=== PATIENT | male | born 1990 | race Caucasian/White ===

== ENCOUNTER 2019-03-09 19:42 | Emergency (ER) | payer SELFPAY ==
[2019-03-09 19:52] VITALS: BP 152/78
--- NOTE | 2019-03-09 20:43 | ER Document Report ---
ED Medical Screen (RME) - General Chief Complaint: Sore Throat Stated Complaint: DIFFICULTY BREATHING Time Seen by Provider: 03/09/19 20:36 - HPI Notes: 03/09/19 20:41 Patient is a 28-year-old male who presents complaining of possible lump to the left lower anterior neck area that he is noticed for the past couple days. He does not notice it when he swallows and does not believe it to be like a food bolus. Patient states that he does have anxiety and feeling something in that part of his neck has exacerbated this as well as panic attacks. He is also complaining of left ear pain. No fever, chest pain, shortness of breath, abdominal pain. I have treated and performed a rapid initial assessment of this patient. A comprehensive ED assessment and evaluation of the patient, analysis of test results and completion of medical decision making process will be conducted by additional ED providers. PHYSICAL EXAMINATION: GENERAL: Well-appearing, well-nourished and in no acute distress. A&Ox4. Answers questions appropriately. Left ear: Cerumen impaction noted Neck: The area of concern does not appear to be the left side of his thyroid, patient's neck is fairly large so the anatomic structures are somewhat difficult . Throat: Airway clear. - Related Data Allergies/Adverse Reactions: No Known Allergies Allergy (Unverified 03/09/19 20:33) Past Medical History - Social History Frequency of alcohol use: None Drug Abuse: None Physical Exam - Vital signs Vitals: Temp Pulse Resp BP Pulse Ox 98.6 F 78 21 H 152/78 H 100 03/09/19 19:50 03/09/19 19:50 03/09/19 19:50 03/09/19 19:50 03/09/19 19:50 Course - Vital Signs Vital signs: Temp Pulse Resp BP Pulse Ox 98.6 F 78 21 H 152/78 H 100 03/09/19 19:50 03/09/19 19:50 03/09/19 19:50 03/09/19 19:50 03/09/19 19:50
[2019-03-09 21:08] LABS: ABSOLUTE BASOPHILS # (AUTO) 0.1 10^3/uL (0.0-0.2); ABSOLUTE EOSINOPHILS # (AUTO) 0.3 10^3/uL (0.0-0.6); ABSOLUTE LYMPHOCYTES (AUTO) 2.9 10^3/uL (0.5-4.7); ABSOLUTE MONOCYTES (AUTO) 0.6 10^3/uL (0.1-1.4); ABSOLUTE NEUT (AUTO) 6.2 10^3/uL (1.7-8.2); BASOPHILS % (AUTO) 0.8 % (0-2); HEMATOCRIT 41.8 % (37.9-51.0); HEMOGLOBIN 14.2 g/dL (13.5-17.0); LYMPHOCYTES % (AUTO) 28.6 % (13-45); MEAN CORPUSCULAR HEMOGLOBIN 28.2 pg (27.0-33.4); MEAN CORPUSCULAR HGB CONC 33.9 g/dL (32.0-36.0); MEAN CORPUSCULAR VOLUME 83 fl (80-97); MONOCYTES % (AUTO) 6.3 % (3-13); PLATELET COUNT 234 10^3/uL (150-450); RED BLOOD COUNT 5.02 10^6/uL (4.35-5.55); RED CELL DISTRIBUTION WIDTH 13.5 % (11.5-14.0); SEGMENTED NEUTROPHILS % (AUTO) 61.3 % (42-78); TOTAL CELLS COUNTED % (AUTO) 100 %; WHITE BLOOD COUNT 10.2 10^3/uL (4.0-10.5)
[2019-03-09 21:29] LABS: ALBUMIN 4.5 g/dL (3.5-5.0); ALKALINE PHOSPHATASE 101 U/L (38-126); ANION GAP 11 (5-19); ASPARTATE AMINO TRANSFERASE 25 U/L (17-59); BILIRUBIN,DIRECT 0.2 mg/dL (0.0-0.4); BILIRUBIN,TOTAL 0.5 mg/dL (0.2-1.3); BLOOD UREA NITROGEN 9 mg/dL (7-20); CALCIUM 9.8 mg/dL (8.4-10.2); CARBON DIOXIDE 26 mmol/L (22-30); CHLORIDE 104 mmol/L (98-107); GLUCOSE 102 mg/dL (75-110); POTASSIUM 3.7 mmol/L (3.6-5.0); TOTAL PROTEIN 8.2 g/dL (6.3-8.2)
--- NOTE | 2019-03-09 22:00 | RADIOLOGY REPORT (SQ) ---
EXAM DESCRIPTION: [facility]: US HEAD NECK SOFT TISSUE CLINICAL HISTORY: 28 years Male, possible lump left side COMPARISON: None FINDINGS: Limited ultrasound of the area of interest in the left anterior neck was performed. This demonstrates a nodule 9 x 8 x 8 mm with fatty hilum, typical for a lymph node. No hyperemia. No fluid collections. IMPRESSION: Palpable abnormality in the left anterior neck corresponds to a benign-appearing lymph node
[2019-03-09 22:16] LABS: FREE T3 3.37 pg/mL (2.77-5.27); FREE T4 (FREE THYROXINE) 1.35 ng/dL (0.78-2.19)
[2019-03-09 22:30] LABS: THYROID STIMULATING HORMONE 6.79 uIU/mL (0.47-4.68)
[2019-03-10] MEDS ORDERED: DEXAMETHASONE SOD PHOS INJ 10 MG/1 ML VIAL IM ONE (00:16)
--- NOTE | 2019-03-10 00:16 | ER Document Report ---
ED ENT - General Chief Complaint: Sore Throat Stated Complaint: DIFFICULTY BREATHING Time Seen by Provider: 03/09/19 20:36 Notes: Patient is a 28-year-old male that comes emergency department chief complaint of a painful lump in the left lower anterior neck area. He states he has noticed this for the past couple of days but it is also come and gone several times over the past couple months. He states occasionally in his left ear pain as well. He denies fever/chills, significant congestion, sore throat, nausea/vomiting, difficulty breathing. He denies any other complaints. He denies swallowing anything and getting stuck, he denies painful swallowing or inability to eat. He takes no daily medications, he denies any past medical history other than anxiety and panic attacks. - Related Data Allergies/Adverse Reactions: No Known Allergies Allergy (Unverified 03/09/19 20:33) Past Medical History - General Information source: Patient - Social History Smoking Status: Never Smoker Frequency of alcohol use: None Drug Abuse: None Lives with: Family Family History: Reviewed & Not Pertinent Patient has suicidal ideation: No Patient has homicidal ideation: No Surgical Hx: Negative - Immunizations Immunizations up to date: Yes Hx Diphtheria, Pertussis, Tetanus Vaccination: Yes Review of Systems - Review of Systems Constitutional: No symptoms reported EENT: See HPI Cardiovascular: No symptoms reported Respiratory: No symptoms reported Gastrointestinal: No symptoms reported Genitourinary: No symptoms reported Male Genitourinary: No symptoms reported Musculoskeletal: No symptoms reported Skin: No symptoms reported Hematologic/Lymphatic: No symptoms reported Neurological/Psychological: No symptoms reported Physical Exam - Vital signs Vitals: Temp Pulse Resp BP Pulse Ox 98.6 F 78 21 H 152/78 H 100 03/09/19 19:50 03/09/19 19:50 03/09/19 19:50 03/09/19 19:50 03/09/19 19:50 - Notes Notes: GENERAL: Alert, interacts well. No acute distress. HEAD: Normocephalic, atraumatic. EYES: Pupils equal, round, and reactive to light. Extraocular movements intact. ENT: Bilateral cerumen impaction with nontender tragus and mastoids. No swelling. Normal nasal, eye exams. Normal oropharyngeal exam. NECK: Full range of motion. Supple. Trachea midline. There left-sided moderately swollen anterior cervical adenopathy noted, otherwise unremarkable LUNGS: Clear to auscultation bilaterally, no wheezes, rales, or rhonchi. No respiratory distress. HEART: Regular rate and rhythm. No murmur ABDOMEN: Soft, non-tender. Non-distended. Bowel sounds present in all 4 quadrants. GENITOURINARY: Deferred EXTREMITIES: Moves all 4 extremities spontaneously. No edema, normal radial and dorsalis pedis pulses bilaterally. No cyanosis. BACK: no cervical, thoracic, lumbar midline tenderness. No saddle anesthesia, normal distal neurovascular exam. Moves all extremities in full range of motion. NEUROLOGICAL: Alert and oriented x3. Normal speech. Cranial nerves II through XII grossly intact. PSYCH: Normal affect, normal mood. SKIN: Warm, dry, normal turgor. No rashes or lesions noted. Course - Re-evaluation Re-evalutation: Patient with a swollen lymph node in the left anterior cervical chain which is mildly tender. Lungs clear, oral pharyngeal exam unremarkable, ears show cerumen impaction but patient denies current ear pain. He is not congested. I suspect this is secondary to patient's frequent headphone use, patient concurs. No fever, unremarkable vital signs except for mild hypertension. Ultrasound showing also lymph node and no concerning finding. Unremarkable laboratory work-up, unremarkable thyroid testing from the work-up performed in triage. Discussed with patient. Provided with dexamethasone for symptom management, discussed room and impaction management, discussed follow-up and return precautions. Patient states appreciation and agreement. - Vital Signs Vital signs: Temp Pulse Resp BP Pulse Ox 98.6 F 78 21 H 152/78 H 100 03/09/19 19:50 03/09/19 19:50 03/09/19 19:50 03/09/19 19:50 03/09/19 19:50 - Laboratory Result Diagrams: 03/09/19 20:53 03/09/19 20:53 Laboratory results interpreted by me: 03/09/19 20:53 TSH 6.79 H Discharge - Discharge Clinical Impression: Anterior cervical adenopathy Cerumen impaction Qualifiers: Laterality: bilateral Qualified Code(s): H61.23 - Impacted cerumen, bilateral Condition: Stable Disposition: HOME, SELF-CARE Additional Instructions: Your ultrasound shows an enlarged lymph node in your neck. Your laboratory work-up does not show any concerning findings at this time. You have been treated for your symptoms, you can take [id number] ibuprofen if needed as well. Follow-up with primary care for additional evaluation and management. For the cerumen impaction (wax) I recommend [id number] eardrops such as isopropyl alcohol or similar product to soften the wax first and then irrigate the wax out. Return for any concerning symptoms including fever, sore throat, difficulty breathing, or any other concerning symptoms. Forms: Elevated Blood Pressure
== END 2019-03-10 01:30 | disposition home or self-care (01) ==
LOC: ER 19:42
DX: R59.0 Localized enlarged lymph nodes (principal); H61.23 Impacted cerumen, bilateral
CPT/HCPCS: 99283; 96372; 36415; 84439; 84443; 85025; 80053; 84481; 76536; J1100